=== PATIENT | female | born 1985 | race American Indian/Alaskan Native ===

== ENCOUNTER 2020-08-29 14:02 | Observation (INO) | payer MEDICAID ==
[2020-08-29] MEDS ORDERED: LACTATED RINGERS 500 ML IV ONE (14:15)
[2020-08-29 14:29] LABS: Bilirubin,Urine NEG (Negative); Blood,Urine NEG (Negative); Color,Urine Yellow (Yellow); Mucus,Urine 3+ /HPF
[2020-08-29 14:30] LABS: Amphetamine Screen,Urine Negative; Benzodiazepines Screen,Urine Negative; Cannabinoid Screen,Urine Negative; Cocaine Screen,Urine Negative; Methadone Screen,Urine Negative; Opiate Screen,Urine Negative
--- NOTE | 2020-08-29 16:53 | Event Note ---
ED Screening Note Date of service: 08/29/20 Time: 16:51 ED Screening Note: 34-year-old -[place] female who is approximately 8 months presents to the emergency room for lower pelvic pain that started today. Patient's states that the pain is in her lower abdomen and it goes back and forth to the right and left lower quadrant. She was seen at labor and delivery and Dr. Weber cleared her states that she is not an active labor and her os is closed. Patient return back to the emergency room for evaluation. Patient denies any vaginal discharge no vaginal spotting or bleeding. Denies any nausea no vomiting. Patient reports that the pain is worse if she tries to walk. She reports that the pain does radiate to her right inner thigh. This initial assessment/diagnostic orders/clinical plan/treatment(s) is/are subject to change based on patients health status, clinical progression and re- assessment by fellow clinical providers in the ED. Further treatment and workup at subsequent clinical providers discretion. Patient/guardian urged not to elope from the ED as their condition may be serious if not clinically assessed and managed. Initial orders include:
[2020-08-29 17:58] LABS: Basophils % (Auto) 0.4 % (0.0-1.8); Eosinophils # (Auto) 0.3 K/mm3 (0.0-0.4); Eosinophils % (Auto) 2.7 % (0.0-4.3); Hematocrit 37.3 % (30.3-42.9); Hemoglobin 12.8 gm/dl (10.1-14.3); Lymphocytes # (Auto) 2.7 K/mm3 (1.2-5.4); Lymphocytes % (Auto) 28.7 % (13.4-35.0); Mean Corpuscular HGB Conc 34 % (30-34); Mean Corpuscular Volume 92 fl (79-97); Monocytes # (Auto) 1.1 K/mm3 (0.0-0.8); Monocytes % (Auto) 12.1 % (0.0-7.3); Platelet Count 172 K/mm3 (140-440); Red Blood Count 4.07 M/mm3 (3.65-5.03); Red Cell Distribution Width 13.2 % (13.2-15.2)
--- NOTE | 2020-08-29 18:01 | Emergency Department Report ---
HPI - General Chief Complaint: Abdominal Pain PUI?: No Time Seen by Provider: 08/29/20 17:51 - HPI HPI: This is a 34-year-old -[place] female presents to the emergency department with a complaint of some acute lower abdomen and pelvic pain that started just prior to presentation. The patient is currently about 8 months and is G4, P1 with 1 live child, one previous miscarriage, and one ectopic treated with methotrexate. The patient came to the emergency department after seeing an COAL CUTTING MACHINE OPERATOR, Dr. Genesis Weber over at L&D and being evaluated and subsequently cleared to return to the emergency department. The patient says that she follows with [facility] for COAL CUTTING MACHINE OPERATOR. She was previously seeing a Dr. Conner and now has switched to a Dr. Juarez. The patient says that with her sons she had similar issues with this lower abdominal and pelvic pain. They never found out the etiology and the patient eventually had a . She denies any other stone rgical history. She denies any past medical history. Patient denies any fever, vaginal bleeding or discharge, dysuria, vomiting, chest pain or shortness of breath, headache. Patient says that the abdominal pain is sharp and is 5 out of 10 in intensity when she is at rest. It worsens with any type of movement and goes to 10 out of 10. ED Past Medical Hx - Past Medical History Hx Hypertension: No Hx Diabetes: No Hx Deep Vein Thrombosis: No Hx Renal Disease: No Hx Sickle Cell Disease: No Hx Seizures: No Hx Asthma: No Hx HIV: No - Social History Smoking Status: Never Smoker ED Review of Systems ROS: Stated complaint: Other details as noted in HPI Comment: All other systems reviewed and negative Constitutional: denies: chills, fever Eyes: denies: eye pain, vision change ENT: denies: ear pain, throat pain Respiratory: denies: cough, shortness of breath Cardiovascular: denies: chest pain, palpitations Gastrointestinal: abdominal pain. denies: vomiting, diarrhea, constipation Genitourinary: denies: dysuria, discharge Musculoskeletal: denies: joint swelling, arthralgia Skin: denies: rash, lesions Neurological: denies: headache, weakness Physical Exam - Physical Exam Vital Signs: Vital Signs 08/29/20 08/29/20 08/29/20 13:14 13:22 13:27 Temperature Pulse Rate 88 88 88 Respiratory Rate Blood Pressure 128/76 O2 Sat by Pulse 97 98 Oximetry 08/29/20 08/29/20 08/29/20 13:32 13:36 13:37 Temperature 99 F Pulse Rate 89 89 Respiratory 16 Rate Blood Pressure 111/61 O2 Sat by Pulse 99 98 Oximetry 08/29/20 08/29/20 13:42 14:56 Temperature 98.3 F Pulse Rate 84 76 Respiratory 18 Rate Blood Pressure 114/73 O2 Sat by Pulse 99 95 Oximetry Physical Exam: GENERAL: The patient is well-developed well-nourished. HENT: Normocephalic. Atraumatic. Patient has moist mucous membranes. EYES: Extraocular motions are intact. NECK: Supple. Trachea is midline. CHEST/LUNGS: Clear to auscultation. There is no respiratory distress noted. HEART/CARDIOVASCULAR: Regular. There is no tachycardia. There is no murmur. ABDOMEN: Abdomen is soft. There is bilateral lower quadrant abdominal tenderness to palpation with right greater than left. No guarding. Patient has normal bowel sounds. The patient complains of right lower quadrant pain with heel strike. SKIN: Skin is warm and dry. NEURO: The patient is awake, alert, and oriented. The patient is cooperative. The patient has no focal neurologic deficits. Normal speech. MUSCULOSKELETAL: There is no tenderness or deformity. There is no limitation range of motion. ED Course Vital Signs 08/29/20 08/29/20 08/29/20 13:14 13:22 13:27 Temperature Pulse Rate 88 88 88 Respiratory Rate Blood Pressure 128/76 O2 Sat by Pulse 97 98 Oximetry 08/29/20 08/29/20 08/29/20 13:32 13:36 13:37 Temperature 99 F Pulse Rate 89 89 Respiratory 16 Rate Blood Pressure 111/61 O2 Sat by Pulse 99 98 Oximetry 08/29/20 08/29/20 13:42 14:56 Temperature 98.3 F Pulse Rate 84 76 Respiratory 18 Rate Blood Pressure 114/73 O2 Sat by Pulse 99 95 Oximetry - Consultations Consultation #1: 08/29/20 20:[address] Lutz, the general surgeon on-call. We discussed the patient's presentation, vital signs, labs and imaging. We discussed my concern to rule out appendicitis. Based on the information provided, Dr. Lutz agrees that the patient does not appear to have signs of any type of appendiceal perforation or an acute abdomen that requires immediate surgical intervention. She has agreed to consult on the patient and agrees with the plan for an MRI of the abdomen in the morning for a definitive look at the appendix. Consultation #2: 08/29/20 21:18 I spoke to the COAL CUTTING MACHINE OPERATOR on-call, Dr. Lisa Weber, who has graciously agreed to admit the patient to her service as an observational stay to have the MRI of the abdomen completed in the morning to further evaluate the patient's abdominal pain and rule out/in appendicitis. ED Medical Decision Making - Lab Data Result diagrams: 08/29/20 17:29 08/29/20 17:29 Lab Results 08/29/20 08/29/20 Range/Units 17:29 17:29 WBC 9.5 (4.5-11.0) K/mm3 RBC 4.07 (3.65-5.03) M/mm3 Hgb 12.8 (10.1-14.3) gm/dl Hct 37.3 (30.3-42.9) % MCV 92 (79-97) fl MCH 32 (28-32) pg MCHC 34 (30-34) % RDW 13.2 (13.2-15.2) % Plt Count 172 (140-440) K/mm3 Lymph % (Auto) 28.7 (13.4-35.0) % Bland % (Auto) 12.1 H (0.0-7.3) % Eos % (Auto) 2.7 (0.0-4.3) % Baso % (Auto) 0.4 (0.0-1.8) % Lymph # (Auto) 2.7 (1.2-5.4) K/mm3 Bland # (Auto) 1.1 H (0.0-0.8) K/mm3 Eos # (Auto) 0.3 (0.0-0.4) K/mm3 Baso # (Auto) 0.0 (0.0-0.1) K/mm3 Seg Neutrophils % 56.1 (40.0-70.0) % Seg Neutrophils # 5.3 (1.8-7.7) K/mm3 Sodium 135 L (137-145) mmol/L Potassium 4.0 (3.6-5.0) mmol/L Chloride 101.0 (98-107) mmol/L Carbon Dioxide 24 (22-30) mmol/L Anion Gap 14 mmol/L BUN 8 (7-17) mg/dL Creatinine 0.5 L (0.6-1.2) mg/dL Estimated GFR > 60 ml/min BUN/Creatinine Ratio 16 % Glucose 73 (65-100) mg/dL Calcium 9.2 (8.4-10.2) mg/dL Total Bilirubin 0.20 (0.1-1.2) mg/dL AST 14 (5-40) units/L ALT 11 (7-56) units/L Alkaline Phosphatase 97 (35-129) units/L Total Protein 6.5 (6.3-8.2) g/dL Albumin 3.8 L (3.9-5) g/dL Albumin/Globulin Ratio 1.4 % - Radiology Data Radiology results: report reviewed US abdomen limited INDICATION / CLINICAL INFORMATION: Right lower quadrant abdominal pain rule out appy. COMPARISON: None available. FINDINGS: The right lower quadrant was imaged. The appendix was not visualized. IMPRESSION: Appendix not visualized on this exam. US pelvis duplex doppler comp INDICATION / CLINICAL INFORMATION: lower abd / pelvic pain. COMPARISON: None available. FINDINGS: The right ovary is larger than the left ovary without focal abnormality. No free fluid is seen. Normal flow is seen to both ovaries. IMPRESSION: Mildly enlarged right ovary without focal abnormality. Normal blood flow seen to both ovaries - Medical Decision Making This patient presents to the emergency department with a complaint of acute lower abdominal pain that started just prior to presentation. The patient says that the pain is severe enough that it is causing her to have difficulty standing upright and ambulating. The pain worsens with palpation and ambulation. Initially the patient went over to labor and delivery and was evaluated by Dr. Lisa Weber and was cleared after the patient had a nonstress test. During my examination the patient has reproducible lower abdominal tenderness to palpation. The patient also says that she has pain in the right lower quadrant with heel strike or hitting the gurney. The patient's labs have been unremarkable including CBC, metabolic panel and urinalysis. The patient had an ultrasound of the abdomen in which they were unable to visualize the appendix. The patient also had an ultrasound of the pelvis that shows a no signs of ovarian torsion or any other acute process. The patient was given some IV fluid resuscitation with lactated Ringer's and a dose of IV analgesia. On reevaluation the patient still complains of this lower abdominal discomfort. While the patient does not have any leukocytosis, left shift, or fever, I am not able unable to rule out appendicitis as the source of this patient's discomfort. The appendix was not visualized on ultrasound. We do not have MRI capability in the evenings. General surgery was contacted and consulted and agrees with the plan for admission to get the MRI to further evaluate the patient's lower abdominal discomfort and specifically the appendix. The COAL CUTTING MACHINE OPERATOR on-call, Dr. Kinza Weber, graciously agreed to accept the patient to her service for an observational stay. Critical Care Time: No Critical care attestation.: If time is entered above; I have spent that time in minutes in the direct care of this critically ill patient, excluding procedure time. ED Disposition Clinical Impression: Intractable lower abdominal pain Qualifiers: Weeks of gestation: 36 weeks Qualified Code(s): Z3A.36 - 36 weeks gestation of Disposition: OP ADMIT IP TO THIS HOSP Is pt being admited?: Yes Condition: Fair Time of Disposition: 21:18
[2020-08-29] MEDS ORDERED: MORPHINE 4 MG/1 ML INJ IV ONE (18:02)
[2020-08-29 18:10] LABS: Alanine Aminotransferase 11 units/L (7-56); Albumin 3.8 g/dL (3.9-5); Blood Urea Nitrogen 8 mg/dL (7-17); Calcium 9.2 mg/dL (8.4-10.2); Hemolysis Index 11
[2020-08-29 18:13] LABS: BUN/Creatinine Ratio 16
--- NOTE | 2020-08-29 20:55 | Ultrasound Report ---
US abdomen limited INDICATION / CLINICAL INFORMATION: Right lower quadrant abdominal pain rule out appy. COMPARISON: None available. FINDINGS: The right lower quadrant was imaged. The appendix was not visualized. IMPRESSION: Appendix not visualized on this exam. Signer Name: Darryl Prieto MD FACR Signed: 08/29/2020 8:50 PM Workstation Name: [id number]
--- NOTE | 2020-08-29 20:56 | Ultrasound Report ---
US pelvis duplex doppler comp INDICATION / CLINICAL INFORMATION: lower abd / pelvic pain. COMPARISON: None available. FINDINGS: The right ovary is larger than the left ovary without focal abnormality. No free fluid is seen. Kathrine l flow is seen to both ovaries. IMPRESSION: Mildly enlarged right ovary without focal abnormality. Normal blood flow seen to both ovaries Signer Name: Darryl Prieto MD FACR Signed: 08/29/2020 8:52 PM Workstation Name: [id number]
[2020-08-29] MEDS: LACTATED RINGERS 1,000 ML IV SCH (21:25)
[2020-08-30] MEDS ORDERED: ACETAMINOPHEN 325 MG TAB PO PRN (02:06)
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
[2020-08-30] MEDS: LACTATED RINGERS 1,000 ML IV SCH (07:40)
--- NOTE | 2020-08-30 09:31 | Event Note ---
Date: 08/30/20 Reviewed patients vital signs which continue to be normal. Labs done yesterday WNL. Will await MRI results and then evaluate patient.
--- NOTE | 2020-08-30 10:28 | Magnetic Resonance Report ---
MRI ABDOMEN WITHOUT CONTRAST HISTORY: Right lower quadrant pain during , rule out appendicitis TECHNIQUE: Multisequence, multiplanar MRI without contrast. COMPARISON: Pelvic ultrasound performed earlier today FINDINGS: An intrauterine is partially imaged and appears to be in cephalic presentation. The fetuses feet project to the right. The placenta is posterior and grossly unremarkable. No abruption. The appendix is not confidently identified on MRI. The cecum and terminal ileum are identified and landon ve an unremarkable appearance. No dilated tubular structure with surrounding inflammation resembling appendicitis is detected. Low suspicion for acute appendicitis. The remaining bowel loops are unremar kable. The right ovary does appear enlarged as noted on recent pelvic ultrasound measuring up to 5.3 x 4.3 c m. No ovarian cyst or suspicious mass is appreciated. The left ovary is not included. The liver, biliary system, pancreas, spleen, kidneys and adrenal glands are unremarkable. No evidence for free fluid, mass or inflammatory changes. IMPRESSION: Low suspicion for acute appendicitis, see above. No acute inflammatory process is appreciated in the abdomen. Mild enlargement of the right ovary is again noted on MRI as noted on recent pelvic ultrasound. No fo chanelle ovarian lesion is detected. Signer Name: Andrew Langston Jr, MD Signed: 08/30/2020 10:23 AM Workstation Name: [id number]
[2020-08-30 11:41] VITALS: BP 119/66
--- NOTE | 2020-08-30 13:16 | Consultation ---
History of Present Illness Consult date: 08/30/20 Reason for consult: abdominal pain - History of present illness History of present illness: 34 year old female presented to ED yesterday 8 months and a 1 day hx of severe RLQ abdominal pain. She she has had the pain with a previous but not this severe. The pain starts in the super-pubic area and radiates along the RLQ. She denies n/v, or anorexia. Pt had an US last night did not visualize the appendix, and she had no leukocytosis with left shift, normal vital signs, and was afebrile. She was observed overnight and had an MRI today that again could not visualize the appendix but there were no signs of inflammation or other pathology. She currently says that pain is a bit improved. Past History Past Medical History: No medical history Social history: no significant social history Medications and Allergies Allergies Allergy/AdvReac Type Severity Reaction Status Date / Time No Known Allergies Allergy Verified 08/29/20 14:52 Review of Systems - Constitutional no fever, no chills, no sweats, no anorexia, no poor appetite - Cardiovascular no chest pain - Respiratory no cough, no shortness of breath - Gastrointestinal abdominal pain, no nausea, no vomiting Exam Vital Signs Pulse BP 88 128/76 08/29/20 13:14 08/29/20 13:14 - General physical appearance Positive: well developed, no distress, no pain - Respiratory Positive: normal expansion, normal respiratory effort - Cardiovascular Heart Sounds: Present: S1 & S2 - Extremities Extremities: no ischemia - Abdomen Abdomen: Present: soft, other (gravid uterus, tender to deep palpation in the super-pubic and RLQ). Absent: guarding, rigid Results - Labs 08/29/20 17:29 08/29/20 17:29 Abnormal lab results 08/29/20 08/29/20 08/29/20 Range/Units 17:29 17:29 Unknown Boundary % (Auto) 12.1 H (0.0-7.3) % Boundary # (Auto) 1.1 H (0.0-0.8) K/mm3 Sodium 135 L (137-145) mmol/L Creatinine 0.5 L (0.6-1.2) mg/dL Albumin 3.8 L (3.9-5) g/dL U Epithel Cells (Auto) 23.0 H (0-13.0) /HPF Diabetes panel 08/29/20 Range/Units 17:29 Sodium 135 L (137-145) mmol/L Potassium 4.0 (3.6-5.0) mmol/L Chloride 101.0 (98-107) mmol/L Carbon Dioxide 24 (22-30) mmol/L BUN 8 (7-17) mg/dL Creatinine 0.5 L (0.6-1.2) mg/dL Glucose 73 (65-100) mg/dL Calcium 9.2 (8.4-10.2) mg/dL AST 14 (5-40) units/L ALT 11 (7-56) units/L Alkaline Phosphatase 97 (35-129) units/L Total Protein 6.5 (6.3-8.2) g/dL Albumin 3.8 L (3.9-5) g/dL Calcium panel 08/29/20 Range/Units 17:29 Calcium 9.2 (8.4-10.2) mg/dL Albumin 3.8 L (3.9-5) g/dL Pituitary panel 08/29/20 Range/Units 17:29 Sodium 135 L (137-145) mmol/L Potassium 4.0 (3.6-5.0) mmol/L Chloride 101.0 (98-107) mmol/L Carbon Dioxide 24 (22-30) mmol/L BUN 8 (7-17) mg/dL Creatinine 0.5 L (0.6-1.2) mg/dL Glucose 73 (65-100) mg/dL Calcium 9.2 (8.4-10.2) mg/dL Adrenal panel 08/29/20 Range/Units 17:29 Sodium 135 L (137-145) mmol/L Potassium 4.0 (3.6-5.0) mmol/L Chloride 101.0 (98-107) mmol/L Carbon Dioxide 24 (22-30) mmol/L BUN 8 (7-17) mg/dL Creatinine 0.5 L (0.6-1.2) mg/dL Glucose 73 (65-100) mg/dL Calcium 9.2 (8.4-10.2) mg/dL Total Bilirubin 0.20 (0.1-1.2) mg/dL AST 14 (5-40) units/L ALT 11 (7-56) units/L Alkaline Phosphatase 97 (35-129) units/L Total Protein 6.5 (6.3-8.2) g/dL Albumin 3.8 L (3.9-5) g/dL - Imaging Additional studies: MRI abdomen and pelvis- as described in HPI Assessment and Plan 34 year old female in her third trimester with abdominal pain unlikely due to acute pathology requiring surgical intervention. Besides RLQ pain (of which she has had a previous ), she has no other clinical indicators for acute appendicitis. Afebrile, stable tolerating diet. I spoke with Dr. Weber and she agreed pt can be discharged and needs to follow up with her MANAGER CRISIS upon discharge.
== END 2020-08-30 11:52 | disposition home or self-care (01) ==
LOC: APU 14:02 → ED 14:02 → EDSTATUS 14:04 → LD 21:18
PROVIDERS: ADMIT Obstetrics & Gynecology; ATTEND Obstetrics & Gynecology
DX: O26.893 Other specified pregnancy related conditions, third trimester (principal); R10.31 Right lower quadrant pain; Z3A.36 36 weeks gestation of pregnancy; Z79.899 Other long term (current) drug therapy
CPT/HCPCS: 36415; 74181; 76705; 80053; 80307; 81001; 85025; 93975; 96374; 99284; G0378; J2270; J7120